=== PATIENT | male | born 1980 | race Caucasian/White ===

== ENCOUNTER 2025-03-08 06:45 | Day surgery (SDC) | payer OTHER, SELFPAY ==
[2025-03-07 23:21] VITALS: BP 94/59
[2025-03-07 23:36] VITALS: BP 102/66
[2025-03-07 23:59] VITALS: BMI 28.0
[2025-03-08] VITALS (13 sets, daily range): BP systolic 105–114; BP diastolic 62–79; BMI 27.9
--- NOTE | 2025-03-08 01:07 | ED.GENMED ---
History of Present Illness
General
Chief Complaint: Fainting/Passed Out
Source: patient, spouse and other (Patient speaks Panamanian-language line medical billing manager utilized)
Exam Limitations: none
Time Seen by Provider: 03/08/25 00:45
Nursing documentation reviewed up to this point in time: agreed with
History of Present Illness
History of Present Illness:
This is a 45-year-old male, Panamanian-speaking who presents with complaints of generalized mid abdominal pain that began around 12 noon, persistent throughout the the day. Abdominal pain nonradiating, no chest pain or back pain, no flank pain, no
nausea or vomiting, no diarrhea or constipation. Tonight however, while in the bathroom, he suddenly developed lightheadedness and proceeded to pass out, struck his left shoulder, left lateral neck area on the bathtub. He denies head injury.
Denies headache, denies neck nor back pain. He continues with lightheadedness and admits to mild nausea, abdominal pain improved but not resolved.
He admits to 1 similar episode of abdominal pain and syncope perhaps 1-1/2 years ago; at that time, syncope occurred after passing a bowel movement. Symptoms promptly resolved. He did not seek medical evaluation at that time.
He has history of hypertension maintained on 1 antihypertensive medication. (Tiregis/D 80/12.5 mg)
He states his blood pressure generally runs 140-150/80-90.
Past History
Past History
ED Past Medical History: HTN
ED Past Surgical History: None
Social History
Tobacco: Non-smoker
Alcohol: Occasional
Drug: None
Personal:
Living: with family
Employment: Employed
Phy Exam
Physical Exam
Physical Exam:
GENERAL: 45-year-old gentleman appears his stated age, awake and alert, oriented x 3, easily communicative, appears in no acute distress. Daughter and are accompanying.
EYE: The head is normocephalic, atraumatic. Pupils equal and reactive. anicteric
NECK: Supple, nontender, full range of motion without difficulty nor pain, no meningismus, no significant adenopathy. No abrasions nor contusions noted.
ENT: posterior pharynx is clear, oral mucosa is moist. TM clear b/l, nares patent.
CARDIAC: Regular rhythm. Bradycardic. No murmur.
LUNGS: Clear breath sounds bilaterally, no acute respiratory distress, no wheezes/rales/rhonchi
ABDOMEN: Soft, nondistended, tenderness right lower quadrant, right mid/lateral abdomen, no r/g, no cvat. normoactive BS.
NEUROLOGICAL: Alert and oriented x3, no focal neuro deficits.
SKIN: Warm and dry, mildly pale in color, skin intact. No rash.
MUSCULOSKELETAL: No C/C/E. peripheral pulses are full and equal b/l. No palpable tenderness.
PSYCH: Normal and appropriate interaction.
Course
Orders/Labs/Results
Orders:
Orders
03/07/25 23:23
EKG [Electrocardiogram (*1)] Urgent
Reason for Study: Syncope
EKG- Treatment ONCE
03/08/25 00:53
Complete Blood Count/With Diff Urgent
Comprehensive Metabolic Panel Urgent
Lipase Urgent
Troponin I Urgent
03/08/25 01:07
0.9% Sodium Chloride 1000 ml [Nss] 1,000 ml IV BOLUS
Atropine Sulfate [Atropine 0.1 mg/ml Syringe] 0.5 mg IV NOW STA
03/08/25 01:10
Lactic Acid Urgent
03/08/25 01:15
Atropine Sulfate [Atropine 0.1 mg/ml Syringe] 0.5 mg IV NOW STA
03/08/25 02:52
CT Abd/pelvis W Iv Cont Urgent
Comment:
Reason For Exam: gen mid abd pain, syncope
03/08/25 04:40
0.9% Sodium Chloride 1000 ml [Nss] 1,000 ml IV 150 mls/hr
Piperacillin/Tazo 3.375 Gram [Zosyn] 3.375 gram in 50 ml IV NOW
03/08/25 06:00
Flush (0.9% Sodium Chloride) [Flush (Nss)] See Dose Instructions IV PER PROTOCOL
03/08/25 06:24
Admit/Transfer Patient As Directed
Co-Sign Provider:
Level of Care: Observation services
Assign to:: Telemetry
Physician / Group: General Surgery, Dr. Bland
Diagnosis: Acute appendicitis
Reason for Telemetry: Syncope
Date to Stop Telemetry: 03/10/25
Time to Stop Telemetry: 11:00
Expected length of stay greater than two midnights?: Yes
ELOS- Estimated Length of Stay in days: 2
I certify the patient meets the requirements for IP care: Yes
03/08/25 06:29
PRN Pain Medication Management As Directed
May give lesser potent ordered pain med per pt: Yes
preference::
Protocol:: Medication orders for pain may be administered in a
manner that supports deferring to patient preference
when the pt is:
- Requesting an ordered lesser potent pain medication.
Least to most potent pain medications are defined
as: acetaminophen < NSAID < tramadol < opioids
(morphine, oxycodone, hydromorphone).
- Requesting a lesser dose of the same medication IF
ORDERED.
- Requesting a less intrusive route of administration
if both routes are prescribed by the provider (PO <
IV).
03/08/25 06:30
Code Status As Directed
Resuscitation Status: Full Code
03/10/25 11:00
DC Protocol for Telemetry ONCE
Abnormal Lab Results
03/08/25
00:53
WBC 12.8 H 10^3/uL
(4.8-10.8)
MCH 31.9 H pg
(27.0-31.0)
Absolute Neuts (auto) 11.3 H 10^3/uL
(1.4-6.5)
Absolute Lymphs (auto) 0.8 L 10^3/uL
(1.2-3.4)
Neutrophils % 88.2 H %
(42.2-75.2)
Lymphocytes % 6.5 L %
(20.5-51.1)
Glucose 151 H mg/dl
(70-99)
03/08/25 00:53
03/08/25 00:53
Vital Signs
Initial and Last Documented VS:
Initial Vital Signs
Pulse Resp BP Pulse Ox
39 18 94/59 100
03/07/25 23:21 03/07/25 23:21 03/07/25 23:21 03/07/25 23:21
Last Documented Vital Signs
Pulse Resp BP Pulse Ox
59 18 111/70 100
03/08/25 06:15 03/08/25 06:15 03/08/25 06:00 03/08/25 06:00
MDM/Problems Addressed
Differential Diagnosis Includes:
Patient noted to be borderline hypotensive with sinus bradycardia ranging from high 30s to low 50s.
Concern for vasovagal episode, with history of hypertension and abdominal pain must consider abdominal aortic aneurysm/aortic dissection, appendicitis, pancreatitis, cholecystitis, colitis, ACS, ischemic bowel. Bowel obstruction is less likely.
No reported fever thus sepsis is unlikely as well.
Will check labs including lactic acid, troponin.
EKG shows sinus bradycardia at 50, no acute ST-T wave abnormalities. No old EKGs to compare.
Will initiate IV fluid bolus and give an IV dose of atropine.
Will plan for CT abdomen pelvis with IV contrast.
Chronic conditions affecting care: HTN
*Radiology
Radiology exam reviewed: radiology read reviewed
*Pulse Oximetry
Patient hypoxic: no
*EKG
Interpreted by ED Provider?: Yes
Interpretation: abnormal
Comparison EKG: no comparison EKG present
Rate: bradycardiac
Rhythm: sinus
[place]: normal axis
Interval: normal interval
QRS Pattern: normal QRS
Ischemia: no ischemia
*Television Equipment Operator Interpretation
Rate: bradycardiac
Interpretation: abnormal
Rhythm: sinus
*Critical Care Note
Total Time (30-74mins, 75-104mins- exclusive of procedures): Not Applicable
Update Note
Update Note:
04:40
Patient remains hemodynamically stable with heart rate in the 60s, blood pressure 110 systolic.
CAT scan shows acute appendicitis with dilation of the appendix to 8 mm with minimal surrounding inflammation.
He continues with moderate tenderness right lower quadrant.
Case discussed with general surgery. Will initiate IV antibiotics, continue IV fluids, admit to surgery service.
ED Attending Note
-
Portions of this chart may have been created with voice recognition software.� Occasional wrong word or��sound alike� substitutions may have occurred due to the inherent limitations of voice recognition software.
Discharge Plan
Departure
Patient Disposition: Admit
Date of Disposition: 03/08/25
Time of Disposition: 04:40
Admit to: Med/Surg
Admit to doctor: miguel
Presentation/result/management discussed w/ accepting MD/DO: gen surgery
Discharge Problem:
Acute appendicitis, Vasovagal episode
Referrals:
UNKNOWN - PT DOES,NOT KNOW [Family Provider] -
Interventions
Interventions:
*Risk Screen - Suicide Last Done: 03/07/25 23:20
*General Assessment Last Done: 03/07/25 23:20
*Neglect/Abuse Screening Last Done: 03/07/25 23:20
ED- Cardiac Assessment Last Done: 03/07/25 23:59
ED- Neurological Assessment Last Done: 03/07/25 23:59
Discharge Date and Time
Print Language: KAZAKH
[2025-03-08] MEDS: ATROPINE 0.1 MG/ML SYRINGE 0.5 MG IV (01:17)
[2025-03-08] MEDS: NSS 1000 IV ×3 (01:19→11:01)
[2025-03-08 01:27] LABS: % Basophils 0.3 % (0-2); % Eosinophils 0.2 % (0-6); % Immature Granulocytes 0.3 % (0-0.5); % Lymphocytes 6.5 % (20.5-51.1); % Monocytes 4.5 % (1.7-9.3); % Neutrophils 88.2 % (42.2-75.2); Absolute Lymphocytes 0.8 10^3/uL (1.2-3.4); Absolute Monocytes 0.6 10^3/uL (0.1-0.6); Absolute Neutrophils 11.3 10^3/uL (1.4-6.5); Hematocrit 42.4 % (39.0-52.0); Hemoglobin 15.3 g/dL (13.0-18.0); Mean Corp Hgb Conc. 36.1 g/dL (33.0-37.0); Mean Corpuscular Hgb 31.9 pg (27.0-31.0); Mean Corpuscular Volume 88.5 fL (80.0-94.0); Mean Platelet Volume 9.7 fL (7.4-10.4); Nucleated Red Blood Cells % 0 % (-); Platelet Count 201 10^3/uL (130-400); Red Blood Cell Count 4.79 10^6/uL (4.70-6.10); Red Cell Dist. Width 11.8 % (11.5-14.5); White Blood Cell Count 12.8 10^3/uL (4.8-10.8)
[2025-03-08 01:31] LABS: Lactic Acid 1.6 mmol/L (0.7-2.0)
[2025-03-08 01:42] LABS: ALT (SGPT) 38 U/L (0-50); AST (SGOT) 24 U/L (17-59); Albumin 4.1 g/dl (3.5-5.0); Alkaline Phosphatase 42 U/L (38-126); Blood Urea Nitrogen 14 mg/dl (9-20); Calcium 9.7 mg/dl (8.4-10.2); Carbon Dioxide 27 mmol/L (22-30); Chloride 103 mmol/L (98-107); Estimated Creatinine Clearance 95 ml/min; Glucose 151 mg/dl (70-99); Lipase 55 U/L (23-300); Potassium 4.6 mmol/L (3.5-5.1); Sodium 138 mmol/L (135-145); Total Bilirubin 1.2 mg/dl (0.2-1.3); Total Protein 6.8 g/dl (6.3-8.2); eGFR > 60.00
[2025-03-08 01:45] LABS: Troponin I < 0.012 ng/ml
[2025-03-08] MEDS: ZOSYN 50 IV ×3 (04:52→14:52)
--- NOTE | 2025-03-08 05:32 | HPS.HSE ---
Addendum entered and electronically signed by Carlos Bland MD 03/08/25 14:52:
Delayed entry
I saw and examined the patient this morning around 9:15 AM.
The BLAST FURNACE CHECKER's note was reviewed and I agree with the note.
Comment:
45-year-old male with PMH of HTN who presents with 1 day of diffuse abdominal pain that localized to the RLQ, WBC 12.8, CT showing dilated appendix of 8 mm towards the base, equivocal for acute appendicitis
AFVSS, ABD soft, nondistended, mild to moderately tender in the RLQ, no rebound or guarding
�History, clinical findings and exam consistent with acute appendicitis
�Explained the pathophysiology and treatment options for acute appendicitis, including, surgery versus nonoperative management; risks of nonoperative management include recurrence of to 20% within 1 year; risks of surgery were explained as well,
including risk of normal appendix; patient understood well and was agreeable to surgery
�Continue n.p.o. for OR this morning
�IV Zosyn until surgery
�Pain control with Tylenol, Toradol, Dilaudid as needed
� Okay for DVT PPx
Dispo�if appendix not perforated and patient tolerates p.o. intake postoperatively, possible DC tonight
Original Note:
Family Physician
-
Family Physician: NOT KNOW UNKNOWN - PT DOES
Chief Complaint
-
Fainting/Passed out, Abdominal pain
History of Present Illness
Patient is a 45 year old male, Bahamian speaking, with a past medical history significant for hypertension, who present to the emergency department with complaints of generalized mid abdominal pain that started yesterday around 12 noon. Pain was
persistent throughout the day, now is described as right lower abdomen. Patient denies chest pain, back pain, flank pain, nausea/vomiting, diarrhea or constipation. Tonight, prior to arrival in the emergency department, while in the bathroom,
patient suddenly developed lightheadedness and had a syncopal episode. He struck his left shoulder and left lateral neck area on the bathtub. He denies head or neck injury. Pt denies headache, neck or back pain. He admits to continued
lightheadedness, nausea, right lower quadrant abdominal pain (rated at 2 out of 10). Patient states he had a similar episode of abdominal paind and syncope about 1 -1/2 years ago. At that time syncope occurred after passing a bowel movement.
Symptoms promptly resolved and he did not seek medical evaluation/treatment at that time.
In the emergency department, patient hypotensive w/sinus bradycardia, heart rate ranging from high 30's to low 50's. Received NSS 1L IV fluid bolus, Atropine 0.5 mg IV x 1, Zosyn 3.375 IV antibiotics. After fluid bolus and atropine, patient
hemodynamically stable with heart rate in the 60's, and Blood pressure 110 systolic.
Labs shows WBC 12.8, lactic 1.6, troponin <0.012, otherwise unremarkable.
CT Abd/Pelvis w/ IV contrast shows acute appendicitis with dilation of the appendix to 8 mm with minimal surrounding inflammation.
Emergency provider, discussed case with General Surgery, Dr. Bland, who will admit patient to his service. Keep NPO, IV fluids, IV antibiotics, prn pain management and antiemetics.
Medical History
Past Medical History
Past Medical History: Reports HTN
Past Surgical History: Reports None
Social History
Tobacco: Non-smoker
Alcohol: Occasional
Drug: None
Personal:
Living: With Family
Employment: Employed
Family History
Family History: Not pertinent
Allergies / Home Medications
Allergies reflects when Allergies were last updated in [facility].
Home Medications with original date entered in [facility] [facility]
Allergy/Medication List:
Patient Allergies
Allergy/AdvReac Type Severity Reaction Status Date / Time
No Known Allergies Allergy Unverified 03/07/25 23:21
If medication reconciliation has not been performed, why?: Other (Home medication list to be reconciled)
Review of Systems
-
History Source: Patient
A 12 point ROS was completed and negative except as noted: Yes
Constitutional: Reports No Symptoms
EENT: Reports No Symptoms
Respiratory: Reports No Symptoms
Cardiac: Reports No Symptoms
Abdomen/GI: Reports Abdominal Pain (right lower quadrant, TTP) and Nausea
: Reports No Symptoms
Musculoskeletal: Reports No Symptoms
Skin: Reports No Symptoms
Neurological: Reports No Symptoms
Psych: Reports Calm
Physical Exam
Vital Signs
Vital Signs
Pulse Resp BP Pulse Ox
78 23 109/70 99
03/08/25 02:45 03/08/25 02:45 03/08/25 04:00 03/08/25 04:30
Physical Exam
General: Well Developed, Well Nourished and Comfortable
HEENT: NormoCephalic and PERRLA
Respiratory: Clear and Non Labored Respirations
Cardiac: S1/S2 and Regular Rhythm
GI: Soft and Tender (right lower quadrant)
Rectal: Deferred by Provider
Musculoskeletal: No Edema and Normal Gait & Station
Skin: Warm and Dry
Neuro: AO x 3 and No Motor Deficits
Psych: Calm and Intact Judgment/Insight
Laboratory Results
-
03/08/25 00:53
03/08/25 00:53
Laboratory Results
Lactic Acid 1.6 mmol/L (0.7-2.0) 03/08/25 01:10
Total Bilirubin 1.2 mg/dl (0.2-1.3) 03/08/25 00:53
AST 24 U/L (17-59) 03/08/25 00:53
ALT 38 U/L (0-50) 03/08/25 00:53
Alkaline Phosphatase 42 U/L (38-126) 03/08/25 00:53
Troponin I < 0.012 ng/ml 03/08/25 00:53
Lipase 55 U/L (23-300) 03/08/25 00:53
Data Reviewed
-
CT Scan: Report Reviewed by me
Medical Tests (Nuc Med, Echo, EKG etc): Report Reviewed by me
Lab Data: Labs Reviewed by me
Impression/Plan
-
IMPRESSION:
Patient is a 45 year old male, Bahamian speaking, with a past medical history significant for hypertension, who present to the emergency department with complaints of generalized mid abdominal pain that started yesterday around 12 noon.
PLAN:
Acute appendicitis
-CT Abd/Pelvis w/IV contrast shows acute appendicitis with dilation of the appendix to 8 mm with minimal surrounding inflammation.
-Admit to General Surgery, Dr. Bland accepting patient
-NPO, IV fluids - NSS @ 100 mls/hr
-IV antibiotics - Zosyn 3.375
-Pain medication and antiemetics
Vasovagal episode
-Telemetry
-Orthostatic vital signs BID
-Phong stockings
Hypertension
-Hold home medication: Telmisartan/hydrochlorothiazide 80 mg/12.5 mg tablets on hold, restart w/improvement of BP/HR
Home medications need to be verified.
DVT Prophylaxis: Phong/SCD
Code Status: Full code
--- NOTE | 2025-03-08 08:00 | PTCARENOTE ---
Pt received from the ED via stretcher.Transport was w/o incident. Pt is AAOx3, HRR, lungs are clear, pt reports mild tenderness to right abd. VSS, Pt is afebrile. Pt pulled up Translation sindy on cell phone, with this sindy able to instruct on plan of
care and verbalize what to expect pre and post surgery. Pt verbalized understanding of instructions. Call talley is within reach.
--- NOTE | 2025-03-08 08:01 | EDRN ---
this RN called the receiving unit and notified them that paper report was going to be tubed up
--- NOTE | 2025-03-08 08:04 | EDRN ---
medication reconciliation was not done, this RN used language line to speak with patient and the pt states that he doesn't know all of his medications, this RN asked the pt if he brought medications in with him and the pt stated no, provider notified
--- NOTE | 2025-03-08 10:10 | CM ---
Reviewed the chart notes and spoke with the patient using his google translate. Patient is admitted under observational status. Patient will be going to the OR today. The observation letter was provided and explained. The patient had no
questions with regards to the letter.
The patient resides with his spouse, two daughters and dog in a one story twin with one step to enter. The patient patient reports no DME/VN/SNF in the past. [facility] [place]
continues to be available to patient/family and is monitoring medical plan for needs at discharge.
Plan: Discharge to home when medically stable. No needs anticipated.
--- NOTE | 2025-03-08 13:10 | PTCARENOTE ---
Pt received from the PACU via bed. Pt is AAOx3, HRR, LCTA, abd sl distended with 3 Lap sites, port site at umbilicus, all well approximated w/ surgical glue, no drainage noted. VSS, pt is afebrile. Pt given plan of care, Pt verbalized understanding
of instructions. Call talley is within reach.
--- NOTE | 2025-03-08 13:11 | W.IMMPOSTOP ---
Surgical Immed Post Op Note
-
Primary Surgeon: Carlos Bland MD
Assisting Surgeon: Jackelyn Reeves NP, [facility]
Pre-op Diagnosis: Acute appendicitis
Post-op Diagnosis: Acute, nonperforated, appendicitis
Procedure Performed: Laparoscopic appendectomy
Anesthesia Type: General
Specimen / Cultures: Appendix
Estimated Blood Loss: 5 mL
Complications: None
Operative Findings: Appendix injected and inflamed with some adhesions around the RLQ; stapled across the base with the 45 mm [place] linear cutting stapler with a purple load, no bleeding
--- NOTE | 2025-03-08 13:13 | OR.RPT ---
Operative Report
Operative Report
DATE OF OPERATION: 03/08/2025
SURGEON: Calros Bland MD
PREOPERATIVE DIAGNOSIS: Acute appendicitis
POSTOPERATIVE DIAGNOSIS: Acute non-perforated appendicitis
OPERATION: Laparoscopic appendectomy
ASSISTANTS:
1. Jackelyn Reeves NP, [facility]
ANESTHESIA: General
ESTIMATED BLOOD LOSS: 5 mL
FINDINGS:
1. Appendix appeared injected and inflamed without evidence of perforation
SPECIMENS:
1. Appendix
DRAINS: None
COMPLICATIONS: No immediate complications.
INDICATIONS: The patient is a 45-year-old male who presented with 1 day of diffuse abdominal pain that became localized to the right lower quadrant. WBC was 12.[address] scan was concerning for mild acute appendicitis. His clinical history, labs
and physical exam were consistent with acute appendicitis. Therefore, I recommended appendectomy. The operation was discussed with the patient in detail, including the risks, benefits and alternatives. Risks described included, but not limited to,
bleeding, infection, damage to nearby structures (i.e., bowel, bladder, epigastric vessels), recurrence, conversion to open, and anesthetic risks. The patient understood and agreed to proceed. The consent was signed and placed in the chart.
PROCEDURE IN DETAIL: The patient was taken to the operating room and placed on the operating table in supine position. Sequential compression devices were placed bilaterally. General anesthesia was induced and the patient was intubated without
complication. The patient was secured to the bed with 1 seatbelt, the right arm secured to the armboard and the left arm was tucked. Antibiotics were recently given on the floor. The abdomen was shaved, prepped and draped in the usual sterile
fashion. A time-out was performed verifying the correct patient, procedure, operative site, positioning, and special equipment.
A 15 blade scalpel was used to make a curvilinear infraumbilical incision about 1.5 cm in length. This was taken down to the level of the fascia using Bovie electrocautery and blunt dissection. The fascia was grasped with Lang clamps and
elevated. A 15 blade was used to incise the fascia. A Mary Beth clamp was introduced and used to spread the fascia. Abdominal entry was confirmed visually and a finger was used to ensure no nearby adhesions. The 12 mm balloon-tipped Denilson port was
inserted and the balloon insufflated with 20 mL of air. The abdomen was insufflated to a pressure of 15 mmHg. The patient tolerated insufflation well. A 10-30 laparoscope was inserted and the abdomen inspected. No injury was noted from initial
abdominal entry. The appendix was covered with the omentum. Two more 5 mm ports were placed under direct visualization in the left lower quadrant and the suprapubic region, taking care to avoid any injury to the epigastric vessels and the bladder
respectively. The patient was placed in Trendelenburg position with the right side up.
Two atraumatic graspers were used to sweep the omentum and small bowel to the left upper quadrant and identify the cecum, terminal ileum and appendix. The appendix was inflamed and dilated but only loosely adherent to the right sidewall of the
pelvic inlet. The appendix was easily freed with blunt and sharp dissection. There was no evidence of perforation. The appendix was grasped and elevated to expose the mesoappendix, which was serially ligated to the base of the appendix with the
[place] LigaSure. With the appendix freely mobile, I switched to the 5-30 laparoscope and divided the appendix using the 45mm laparoscopic linear cutting stapler with a purple load. The appendix was placed in an Endocatch bag and placed to the side.
The staple line and mesoappendix was closely evaluated and was hemostatic. Attention was turned to the pelvis and this was also suctioned yellow murky fluid. Next, the suprapubic port and LLQ port were removed under direct visualization, no
bleeding was noted. The balloon port of the Saul trocar was deflated, the trocar removed and the appendix extracted without difficulty. The appendix was passed off as specimen. The abdomen was allowed to collapse. The fascia at the
infraumbilical port site was closed with a 0-Vicryl stitch in a [id number] fashion. The skin of the ports were closed with 4-0 Monocryl in subcuticular fashion. The incisions were injected with a total of 30 mL of 0.25% Marcaine with
epinephrine and 0.3 mg of dexamethasone. Dermabond was used for dressing.
At this point, the procedure was complete. The patient was awoken and extubated without complication. The esparza was removed. All needle, sponge and instrument counts were reported as correct. The patient tolerated the procedure well and was
transferred to the recovery room in stable condition.
DICTATED BY: Carlos Bland MD
--- NOTE | 2025-03-08 15:46 | W.DS.TRANS ---
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
-
Discharge Instructions:
Discharge Diagnosis/Procedures Acute appendicitis status post appendectomy
Vasovagal syncope
Diet Regular,As tolerated
Additional Diets Eat smaller meals until your appetite returns
Activity No strenuous activity
Additional Activity Avoid lifting over 5kg for the next 2-3 weeks
Driving Restrictions No driving for 24 hours
Bathing Restrictions OK to Shower
Wound Care Allow the glue to flake off your incisions over
the next 2-3 weeks. Do not soak in tubs or go
swimming during this time.
Instructions:
Stand-Alone Forms:
Changes to Home Medications: No
Discharge Medications:
DC Medications w/original date entered in [employer]
acetaminophen 325 mg tablet 650 mg (2 x 325 mg) PO Q4HPRN PRN mild pain #1 tab 03/08/25
ibuprofen 200 mg tablet 400 - 600 mg (2 - 3 x 200 mg) PO Q6HPRN PRN moderate pain #1 tab 03/08/25
oxycodone 5 mg tablet 5 mg PO Q4HPRN PRN breakthrough/severe pain #5 tabs 03/08/25
Home Medication Changes
Pending Results: No
== END 2025-03-08 16:31 | disposition home or self-care (01) ==
LOC: PACU 06:45
PROVIDERS: ATTENDING PHYSICIAN Surgery; EMERGENCY PHYSICIAN Emergency Medicine
DX: K35.80 Unspecified acute appendicitis (principal)
CPT/HCPCS: 44970; 88304; 74177; 80053; 83605; 83690; 84484; 85025; 93005; 96361; 96365; 96375; 99285; C1776; G0378; Q9967